=== PATIENT | female | born 1940 | race Two or more races ===

== ENCOUNTER 2023-10-16 14:56 | Emergency (ER) | payer OTHER ==
[~2023-10-16] VITALS: Ht 162.6 cm; Wt 43.1 kg
[2023-10-16] MEDS ORDERED: COZAAR25 MG PO (15:43)
[2023-10-16] MEDS ORDERED: LEVOTHYROXINE13 MCG PO (15:43)
[2023-10-16] MEDS ORDERED: HUMULIN R100 UNIT/1 SUBCUTANEO (15:43)
[2023-10-16] MEDS ORDERED: OLANZAPINE2.5 MG (15:44)
[2023-10-16] MEDS ORDERED: ARIPIPRAZOL1 MG/1 ML (15:44)
[2023-10-16] MEDS ORDERED: EZETIMIBE10 MG PO (15:44)
[2023-10-16] MEDS ORDERED: DEXTROSE 50 % IN WATER 0.5 G/ML VIAL IV ONE ×2 (16:09→21:34)
[2023-10-16] MEDS ORDERED: DEXTROSE 50 % IN WATER 0.5 G/ML VIAL IV STA (16:19)
[2023-10-16] MEDS ORDERED: DEXTROSE 5 % AND 0.9 % NACL 1,000 ML IV STA (16:22)
[2023-10-16 16:40] LABS: HEMATOCRIT 36.7 % (36.0-45.00); HEMOGLOBIN 12.2 g/dL (12.0-15.00); MEAN CELL VOLUME 86.3 fL (80.00-100.00); MEAN CORPUSCULAR HEMOGLOBIN 28.8 pg (27.00-32.0); MEAN CORPUSCULAR HGB CONC 33.3 g/dl (32.0-36.0); PLATELET COUNT 280 K/uL (150-450); RED BLOOD COUNT 4.26 M/uL (4.00-6.00); RED CELL DISTRIBUTION WIDTH 14.4 % (11.5-14.5)
[2023-10-16 17:02] LABS: CALCIUM 9.7 mg/dL (8.5-10.1); CREATININE SERUM 1.33 mg/dL (0.55-1.02); GFR 38.1; POTASSIUM 5.57 mEq/L (3.5-5.1)
[2023-10-16 21:48] LABS: PH,URINE 5.5 (5.0-8.0); URINE APPEARANCE Clear; URINE BILIRRUBIN Negative (NEGATIVE); URINE BLOOD Negative; URINE COLOR Yellow; URINE GLUCOSE Negative (NEGATIVE); URINE LEUKOCYTE Negative; URINE NITRATE Negative; URINE PROTEIN Negative (NEGATIVE); URINE UROBILINOGEN 0.2 E.U./dl
[2023-10-16 21:54] LABS: URINE EPITHELIAL CELLS 9.8 uL (0.0-38.8); URINE RBC 3.6 uL (0.0-20.8); URINE WBC 11.2 uL (0.0-23.2)
[2023-10-17] MEDS ORDERED: GLUCAGON 1 MG VIAL SUBCUTANEO STA (03:44)
[2023-10-17] MEDS ORDERED: RINGERS SOLUTION,LACTATED 1,000 ML IV STA (03:45)
[2023-10-17] MEDS ORDERED: GLUCAGON 1 MG VIAL ONE (03:51)
[2023-10-17] MEDS ORDERED: DEXTROSE 50 % IN WATER 0.5 G/ML VIAL IV ONE (07:04)
[2023-10-17] MEDS ORDERED: DEXTROSE 5 % AND 0.9 % NACL 1,000 ML IV STA (07:04)
== END 2023-10-17 17:40 | disposition home or self-care (01) ==
LOC: ER 14:57
PROVIDERS: General Practice; Nurse Practitioner Family
DX: E11.65 Type 2 diabetes mellitus with hyperglycemia (principal); I10 Essential (primary) hypertension; E78.00 Pure hypercholesterolemia, unspecified; Z86.73 Personal history of transient ischemic attack (TIA), and cerebral infarction without residual deficits; R41.82 Altered mental status, unspecified
CPT/HCPCS: 36415; 70450; 71046; 93005; 96365; 96366; 99284; J3490; J7070